=== PATIENT | female | born 1965 | race Hispanic/Latino ===

== ENCOUNTER 2017-10-10 00:54 | Emergency (ER) | payer MEDICAID ==
[~2017-10-10 00:54] MED LIST: AMOX-429 PO; TAMS-1 PO; TRAM50TA2 PO
[2017-10-10] MEDS ORDERED: HYDROXYZINE HCL 25 MG TABLET ONE (01:07)
== END 2017-10-10 01:17 | disposition home or self-care (01) ==
LOC: EDH 00:54
DX: H10.9 Unspecified conjunctivitis (principal)

== ENCOUNTER → 2021-08-21 | Outpatient (CLI) | payer MEDICAID | END | disposition home or self-care (01) | LOC: RAH 13:57 | PROVIDERS: ATTEND Family Medicine | DX: N63.21 Unspecified lump in the left breast, upper outer quadrant (principal); N63.24 Unspecified lump in the left breast, lower inner quadrant | CPT/HCPCS: 76641; 77066 ==

== ENCOUNTER 2022-03-22 12:59 | Emergency (ER) | payer MEDICAID ==
[~2022-03-22] VITALS: Ht 154.9 cm; Wt 74.4 kg
[2022-03-22 13:26] LABS: HEMATOCRIT 42.7 % (36-48); MEAN CORPUSCULAR HEMOGLOBIN 28.8 pg (27.0-33.0); MEAN CORPUSCULAR HGB CONC 31.4 g/dL (32.0-36.0); MEAN CORPUSCULAR VOLUME 91.6 fL (79-99); PLATELET COUNT (AUTO) 281 K/uL (130-400); RED BLOOD CELL COUNT(AUTO) 4.66 MIL/uL (4.00-5.50); RED CELL DISTRIBUTION WIDTH 15.4 % (11.0-15.5); WHITE BLOOD COUNT (AUTO) 6.2 K/uL (4.8-10.8)
[2022-03-22 13:43] LABS: ALBUMIN 3.3 g/dL (3.5-5.0); CREATININE 0.8 mg/dL (0.5-1.5); POTASSIUM 3.8 mmol/L (3.5-5.1); TOTAL PROTEIN, SERUM 6.6 g/dL (6.0-8.3)
[2022-03-22 14:06] LABS: EOSINOPHILS % (MANUAL) 2 % (1-6); LYMPHOCYTES % (MANUAL) 33 % (22-44); MAN.DIFF COMMENT-IMPRESSION MANUAL DIFFERENTIAL; MONOCYTES % (MANUAL) 12 % (2-9); SEGMENTED NEUTROPHILS % 53 % (40-70)
[2022-03-22 14:07] LABS: PLATELET MORPHOLOGY COMMENT ADEQUATE
[2022-03-22 15:50] VITALS: BP 128/76
[2022-03-22] MEDS ORDERED: ACETAMINOPHEN 500 MG TABLET ONE (16:00)
[2022-03-22] MEDS ORDERED: ACETAMINOPHEN 500 MG TABLET PO ONE (16:00)
== END 2022-03-22 16:11 | disposition home or self-care (01) ==
LOC: EDH 12:59
DX: S40.812A Abrasion of left upper arm, initial encounter (principal); S80.812A Abrasion, left lower leg, initial encounter; S90.512A Abrasion, left ankle, initial encounter; S09.90XA Unspecified injury of head, initial encounter; W01.0XXA Fall on same level from slipping, tripping and stumbling without subsequent striking against object, initial encounter; Y93.89 Activity, other specified; Y92.89 Other specified places as the place of occurrence of the external cause; Y99.8 Other external cause status
CPT/HCPCS: 36415; 70450; 72125; 73590; 73610; 73630; 80053; 85025

== ENCOUNTER → 2023-06-09 | Outpatient (CLI) | payer MEDICAID | END | disposition home or self-care (01) | LOC: RAH 07:30 | PROVIDERS: ATTEND Internal Medicine Medical Oncology | DX: C50.112 Malignant neoplasm of central portion of left female breast (principal); R92.321 Mammographic fibroglandular density, right breast; Z85.3 Personal history of malignant neoplasm of breast | CPT/HCPCS: 76882; 77065 ==

== ENCOUNTER 2025-03-15 12:43 | Observation (INO) | payer MEDICAID ==
[~2025-03-15] VITALS: Ht 144.8 cm; Wt 67.0 kg
[~2025-03-15 12:43] MED LIST changes: -TAMS-1 PO; +TAMS-55 PO
--- NOTE | 2025-03-15 15:14 | HMCIMG ---
EXAM: CR left Rib, 3 View, Chest 1 view. CLINICAL HISTORY: fall COMPARISON: None provided. FINDINGS: Nondisplaced fracture of the lateral aspect of the left seventh rib and posterior, lateral aspects of the left ninth and suspected 10th ribs. No pneumothorax appreciated. Visualized chest is clear. No pleural effusion. Heart size and pulmonary vessels are within normal limits. IMPRESSION: 1. Nondisplaced fractures of left 7th, 9th, and suspected 10th ribs. 2. No pneumothorax. /[place]
--- NOTE | 2025-03-15 15:54 | ERN ---
ED Note History of Present Illness Stated Complaint: FALL Chief Complaint: Mechanical Fall Time Seen by MD: 12:57 Time Seen by Midlevel: 13:00 Dictation: 59-year-old female with a history of hypertension coming in with complaints of left rib pain. Patient states she had a ground level fall couple of days ago. States she had not coming in because she lives by herself and did not have anybody to bring her. Patient denies any head injury, no LOC, no blood thinners. Allergies: Coded Allergies: No Known Drug Allergies (Unverified Allergy, Unknown, 04/13/17) Home Meds Reported Medications Tramadol HCl (Ultram) 50 Mg Tab, 50 MG PO [id number] PRN for PAIN LEVEL 6 TO 10, #20 TAB 04/15/17 Tamsulosin HCl (Flomax) 0.4 Mg Cap.er.24h, 0.4 MG PO DAILY for 14 Days, CAPSULE. 04/15/17 Amoxicillin/Potassium Clav (Augmentin 875-125 Tablet) 1 Each Tablet, 1 EACH PO BID for 10 Days, TAB 04/15/17 Past Medical History Past Medical History: Cancer, Diabetes-Type II, Other Additional Past Medical Hx: THYROID Surgical History: Other, None Surgical History Other: LT MASTECTOMY Review of System Dictation Constitutional: Negative for fever,chills, and weight loss Eyes: Negative for injury, pain,redness, and discharge ENT: Negative for injury,pain or swelling Cardiovascular: Negative for chest pain, palpitations, and edema, complaining of left-sided rib pain Respiratory: Negative for shortness of breath, cough, and wheezing, Abdomen/GI: Negative for abdominal pain, nausea, vomiting, diarrhea, and constipation Back: Negative for injury and pain : Negative for injury, bleeding and discharge MS/Extremity: Negative for injury and deformity Skin: Negative for rash, and discoloration Neuro: Negative for headache, weakness, numbness, tingling, and seizure Psych: Negative for suicide ideation, homicidal ideation, and hallucinations Review of Systems: was completed Initial Vital Sign VS Vital Signs Date Time Temp Pulse Resp B/P (MAP) Pulse Ox O2 Delivery O2 Flow Rate FiO2 03/15/25 12:47 98.2 72 18 143/88 97 Physical Exam Dictation General: awake, alert, NAD Head/Face: Normocephalic, atraumatic Eyes: PERRL, EOMI, vision at baseline ENT: oral cavity clear, TMs clear, no signs of infection Neck: Trachea midline, supple, no nuchal rigidity Cardiovascular: RRR, normal S1/S2, No MRGs, no JVD, pain on palpation to the left lateral aspect of the thoracic cavity Respiratory: CTAB, no respiratory distress, No rales or wheezes Abdomen: Soft, non-tender, non-distended, normal bowel sounds, no guarding or rebound. Skin: Warm, dry, normal turgor, no rash MS/Extremity: Pulses equal, no cyanosis, neurovascular intact, FROM Neuro: COAx4, GCS 15, strength 5/5, CN 2-12 intact, normal cerebellar exam, normal gait, Psych: Normal behavior, mood, and affect normal Results (Laboratory/Radiology) Laboratory/Radiology Laboratory Tests Test 03/15/25 15:58 White Blood Count 7.1 K/uL (4.8-10.8) Red Blood Count 4.41 MIL/uL (4.00-5.50) Hemoglobin 13.2 g/dL (12.0-16.0) Hematocrit 41.0 % (36-48) Mean Corpuscular Volume 93.0 fL (79-99) Mean Corpuscular Hemoglobin 29.9 pg (27.0-33.0) Mean Corpuscular Hemoglobin Concent 32.2 g/dL (32.0-36.0) Red Cell Distribution Width 14.5 % (11.0-15.5) Platelet Count 292 K/uL (130-400) Mean Platelet Volume 11.6 fL (7.5-10.5) H Immature Granulocyte % (Auto) 0.4 % (0-1) Neutrophils (%) (Auto) 54.0 % (40.0-77.0) Lymphocytes (%) (Auto) 33.2 % (21.0-51.0) Monocytes (%) (Auto) 9.0 % (3.0-13.0) Eosinophils (%) (Auto) 2.8 % (0.0-8.0) Basophils (%) (Auto) 0.6 % (0.0-5.0) Neutrophils # (Auto) 3.8 K/uL (1.8-7.7) Lymphocytes # (Auto) 2.4 K/uL (1.0-4.8) Monocytes # (Auto) 0.6 K/uL (0.1-1.0) Eosinophils # (Auto) 0.20 K/uL (0.00-0.70) Basophils # (Auto) 0.04 K/uL (0.00-0.20) Absolute Immature Granulocyte (auto 0.03 K/uL (0-1) Nucleated Red Blood Cells 0.0 % (0.0-0.19) Labs Reviewed?: Yes X-RAY Comment: [place] [address] [place] [id number] IMAGING REPORT Signed PATIENT: RAJEEV DOLL MR#: [id number] : 1965 SEX: F AGE: 59 LOCATION: [facility] ORDER 1303 STATUS: REG ER REPORT#: [id number] SERVICE 1302 REASON: fall ORDERING PHYSICIAN: NATASHA MUNOZ NP PROCEDURE: RIB LT W C - RIBS UNI LT W PA CHEST 3+VWS EXAM: CR left Rib, 3 View, Chest 1 view. CLINICAL HISTORY: fall COMPARISON: None provided. FINDINGS: Nondisplaced fracture of the lateral aspect of the left seventh rib and posterior, lateral aspects of the left ninth and suspected 10th ribs. No pneumothorax appreciated. Visualized chest is clear. No pleural effusion. Heart size and pulmonary vessels are within normal limits. IMPRESSION: 1. Nondisplaced fractures of left 7th, 9th, and suspected 10th ribs. 2. No pneumothorax. /[place] DICTATED BY: SHALA CHAN Jr., MD DATE: 03/15/251612 ELECTRONICALLY SIGNED BY: SHALA CHAN Jr., MD DATE: 03/15/251612 ED Course ED Course Orders Procedure Category Date Status Time Ribs Uni Lt W Pa RAD 03/15/25 Resulted Chest 3+Vws 13:02 Tramadol Hcl (Ultram) PHA 03/15/25 Complete 13:02 Cbc With Differential LAB 03/15/25 Complete 15:28 Basic Metabolic Panel LAB 03/15/25 In Process 15:28 Urinalysis Profile LAB 03/15/25 Logged 15:28 12 Lead Ekg Tracing- EKG 03/15/25 Logged Technical 15:28 Fentanyl Citrate Pf PHA 03/15/25 Complete 0.05 Mg/Ml (Fentanyl 15:49 Current Medications Medications (Trade) Dose Ordered Sig/Jenelle Route PRN Reason Start Time Stop Time Status Last Admin Dose Admin Fentanyl Citrate (FENTanyl CITRate PF 50 MCG/ 1 ML 2ML VIAL) 25 mcg ONCE STAT IVP 03/15/25 15:49 03/15/25 15:53 DC 03/15/25 16:03 Tramadol HCl (UltRAM) 50 mg ONCE STAT PO 03/15/25 13:02 03/15/25 13:05 DC 03/15/25 13:21 Vital Signs Date Time Temp Pulse Resp B/P (MAP) Pulse Ox O2 Delivery O2 Flow Rate FiO2 03/15/25 12:47 98.2 72 18 143/88 97 Medical Decision Making MDM MDM: 59-year-old female with a history of hypertension coming in with complaints of left rib pain. Patient states she had a ground level fall couple of days ago. States she had not come in because she lives by herself and did not have anybody to bring her. Patient denies any head injury, no LOC, no blood thinners. Rib series shows a fracture to the 7th, 9th and 11th rib. On reassessment after tramadol, patient states she still has a lot of pain, has trouble moving around, it is concerned about going home and pains states he lives by herself and can not get around her home. 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 Differential diagnosis: Pneumothorax, rib fractures, rib contusion, lung contusion Rationale: Tests considered and ordered secondary to shared decision making include: labs, ECG and radiology Previous outside records reviewed: Old ER visits. Risk of complication and/or morbidity or mortality of patient management: None Medications-Per medication reconciliation Need for hospitalization: Patient does meet criteria for hospitalization. Need for emergency major/minor surgery: No There are no social concerns with this patient. Prescription drug management Prescriptions will include symptomatic care Patient's prior external medical records from other ER visits were reviewed by me as indicated. Prior testing and results from previous visits were reviewed. Prior tests were taken into account with medical decision making and resource utilization, independent historian/historians were used to obtain complete medical history. I independently interpreted the test that were performed, results were reviewed by me and considered findings on radiology if ordered. Medical management and examination interpretation discussions were had by me with other qualified healthcare professionals as indicated for the patient's care. DX & DISP Disposition: Discharge Decision to Admit Date: Mar 15, 2025 Decision to Admit Time: 16:24 Departure Impression: Primary Impression: Ribs, multiple fractures Additional Impression: At risk for inadequate pain control Condition: Stable Referrals: AUSTIN CASEY (PCP) Time of Disposition: 16:24 I have reviewed the case, and I agree with, Diagnosis and Plan NATASHA MUNOZ NP Mar 15, 2025 15:54
[2025-03-15 16:10] LABS: IMMATURE GRANULOCYTE ABSOLUTE 0.03 K/uL (0-1); NUCLEATED RED BLOOD CELLS 0.0 % (0.0-0.19); PLATELET COUNT (AUTO) 292 K/uL (130-400); RED BLOOD CELL COUNT(AUTO) 4.41 MIL/uL (4.00-5.50); RED CELL DISTRIBUTION WIDTH 14.5 % (11.0-15.5); WHITE BLOOD COUNT (AUTO) 7.1 K/uL (4.8-10.8)
[2025-03-15 16:22] LABS: CREATININE 0.6 mg/dL (0.5-1.0); GLOMERULAR FILTR. RATE CALC 103.0 mL/min (>90); GLUCOSE,RANDOM 131.0 mg/dL (70-105); SODIUM SERUM 142.0 mmol/L (136-145); UREA NITROGEN, BLOOD 15.0 mg/dL (7-18)
[2025-03-15] MEDS ORDERED: PoTASSium chloRIDE 20MEQ ER 20 MEQ ERTAB PO PRN (16:30)
[2025-03-15] MEDS ORDERED: PoTASSium chl 10% ELIXIR 20MEQ 20 MEQ/15 ML UDCUP PO PRN (16:30)
[2025-03-15] MEDS ORDERED: HYDROcodone/APAP 5/325 1 TAB TABLET PO PRN (16:30)
[2025-03-15] MEDS ORDERED: LACTULOSE 20 GM/30 ML UDCUP PO PRN (16:30)
[2025-03-15] MEDS ORDERED: MAGNESIUM 2GM PREMIX 50ML 50 ML IV PRN (16:30)
--- NOTE | 2025-03-15 16:38 | HP ---
[facility] H[facility] PHYS[facility] Date of Service: Mar 15, 2025 Time of Service: 16:32 HISTORY OF PRESENT ILLNESS: [ ] admission Date 03/15/2025 PCP: Dr Lambert Mcdonough MD CC intractable pain left sided rib cage s/p fall two days ago This is a 59-year-old female that presents in ED with chief complaints left rib pain. Onset two days. Reports that she got up in the middle of the night to use the bathroom and she ran into the bathroom door. She has no bruising to add left side. The patient has a history of left breast cancer with mastectomy she is currently on p.o. chemo daily and IV infusion every three months. She reports the pain on her left side states 04/20 when she presented in ED she was given pain medication some relief. Severity pain is severe on arrival aggravated factors activity, walking, alleviating factors none. She denies chest pain, shortness for breath, headache blurry vision double vision. ER workup was consistent Nondisplaced fractures of left 7th, 9th, and suspected 10th ribs. No pneumothorax. Patient will be admitted for pain management overnight. REVIEW OF SYSTEMS 12 point ROS obtained all relevant positive documented otherwise ROS negative PAST MEDICAL HISTORY: [ ] Diabetes, breast cancer on chemo PAST SURGICAL HISTORY: [ ] Left-sided mastectomy PAST SOCIAL HISTORY: [ ] Denies smoking tobacco products and alcohol use lives with boyfriend FAMILY HISTORY: [ ] Noncontributory Coded Allergies: No Known Drug Allergies (Unverified Allergy, Unknown, 04/13/17) PHYSICAL EXAM GENERAL APPEARANCE: The patient is awake, alert, and oriented, in no acute cardiopulmonary distress. NEUROLOGICAL: Cranial nerves II-XII grossly intact. Motor is 5/5 in bilateral upper and lower extremities proximal to distal. No sensory deficits. HEENT: Face is symmetric. Pupils are equal and reactive. Extraocular movements are intact. NECK: Supple. No JVD. No thyromegaly. No submental, submandibular, pre- /postauricular, occipital or supraclavicular lymphadenopathy. CHEST: Normal chest expansion. No Telemetry. LUNGS: Absence of any rales, rhonchi or any wheezing. CARDIOVASCULAR: Regular. S1 and S2 normal. No appreciable rubs, murmurs or gallops. ABDOMEN: Soft, nontender, and nondistended. There is no rebound, voluntary guarding, or rigidity. : Deferred. No Hines. EXTREMITIES: Non-edematous and not cyanotic. No clubbing. Good capillary refill. SKIN: No skin breakdown. Vital Sign (Last 24 Hours) 03/15/25 12:47 Temp 98.2 Pulse 72 Resp 18 B/P (MAP) 143/88 Pulse Ox 97 LABS: Laboratory: Test 03/15/25 15:58 Range/Units White Blood Count 7.1 4.8-10.8 K/uL Red Blood Count 4.41 4.00-5.50 MIL/uL Hemoglobin 13.2 12.0-16.0 g/dL Hematocrit 41.0 36-48 % Mean Corpuscular Volume 93.0 79-99 fL Mean Corpuscular Hemoglobin 29.9 27.0-33.0 pg Mean Corpuscular Hemoglobin Concent 32.2 32.0-36.0 g/dL Red Cell Distribution Width 14.5 11.0-15.5 % Platelet Count 292 130-400 K/uL Mean Platelet Volume 11.6 H 7.5-10.5 fL Immature Granulocyte % (Auto) 0.4 0-1 % Neutrophils (%) (Auto) 54.0 40.0-77.0 % Lymphocytes (%) (Auto) 33.2 21.0-51.0 % Monocytes (%) (Auto) 9.0 3.0-13.0 % Eosinophils (%) (Auto) 2.8 0.0-8.0 % Basophils (%) (Auto) 0.6 0.0-5.0 % Neutrophils # (Auto) 3.8 1.8-7.7 K/uL Lymphocytes # (Auto) 2.4 1.0-4.8 K/uL Monocytes # (Auto) 0.6 0.1-1.0 K/uL Eosinophils # (Auto) 0.20 0.00-0.70 K/uL Basophils # (Auto) 0.04 0.00-0.20 K/uL Absolute Immature Granulocyte (auto 0.03 0-1 K/uL Nucleated Red Blood Cells 0.0 0.0-0.19 % Sodium Level 142 136-145 mmol/L Potassium Level 4.0 3.5-5.1 mmol/L Chloride Level 109 101-111 mmol/L Carbon Dioxide Level 28 21-32 mmol/L Blood Urea Nitrogen 15 7-18 mg/dL Creatinine 0.6 0.5-1.0 mg/dL Glomerular Filtration Rate Calc 103 >90 mL/min Random Glucose 131 H 70-105 mg/dL Total Calcium 8.2 L 8.5-10.1 mg/dL Current Medications Medications (Trade) Dose Ordered Sig/Jenelle Route PRN Reason Start Time Stop Time Status Last Admin Dose Admin Fentanyl Citrate (FENTanyl CITRate PF 50 MCG/ 1 ML 2ML VIAL) 25 mcg ONCE STAT IVP 03/15/25 15:49 03/15/25 15:53 DC 03/15/25 16:03 25 MCG Tramadol HCl (UltRAM) 50 mg ONCE STAT PO 03/15/25 13:02 03/15/25 13:05 DC 03/15/25 13:21 50 MG DIAGNOSTICS / RADIOLOGY: [ ] REASON: fall ORDERING PHYSICIAN: NATASHA MUNOZ NP PROCEDURE: RIB LT W C - RIBS UNI LT W PA CHEST 3+VWS EXAM: CR left Rib, 3 View, Chest 1 view. CLINICAL HISTORY: fall COMPARISON: None provided. FINDINGS: Nondisplaced fracture of the lateral aspect of the left seventh rib and posterior, lateral aspects of the left ninth and suspected 10th ribs. No pneumothorax appreciated. Visualized chest is clear. No pleural effusion. Heart size and pulmonary vessels are within normal limits. IMPRESSION: 1. Nondisplaced fractures of left 7th, 9th, and suspected 10th ribs. 2. No pneumothorax. ASSESSMENT: Mechanical floor: sustained ribs fracture: left sided 7th, 9th and 11th POA intractable pain to left sided rib cage POA Breast cancer with left-sided mastectomy on chemotherapy Immunosuppressive state History diabetes type 2 PLAN: Admit: Surgical floor condition: Guarded Status: Full code IVF: NS at 75 mL/hour Consultants none Pain management [place] [id number] tab every 6 hours, morphine 2 mg IV every 4 hours Labs cbc, cmp, mag+ A.c. HS monitoring with sliding scale coverage Replace electrolytes as needed as per protocol to keep potassium above 4.0 magnesium 2.0. Home medications pending to be reviewed by RN nurse. PRN: MEDICATIONS Tylenol 650 mg po every 4 hrs for fever zofran 4 mg IV every 6 hrs for n/v Hydralazine 5 mg IV every 4 hrs systolic pressure > 160 bowel regiment: lactulose 20 gm PO BID PRN constipation Pain management: Supportive measures: DVT ppx, GI ppx all questions answered time spent: > 35 min Supervising MD: Dr. Zeke Mccurdy c/d This document was generated in part using voice recognition software, occasional wrong word or sound alike substitutions may have occurred due to the inherent limitations of voice recognition software. Read the chart carefully and recognize using context, where the substitutions have occurred. Although every effort was made to edit the content, director cpg and typing errors may occur ADVANCED CARE PLANNING 1. Which of the following were discussed? Hospice Care - Yes / No Therapeutic options - Yes / No Advance Directives - Yes / No Other discussions - 2. Discussed with who? 3. Voluntary nature of this service was explained to the patient? Yes / No 4. Amount of time spent - 5. Reviewed by Physician? (if this service was performed by NPP) Yes / No ATTESTATION BY PHYSICIAN I have seen and examined the patient. I reviewed the documentation, medical decision making, and treatment plan as noted by the mid-level provider above. I agree with the findings and plan of care. TIMUR CERVANTES MD, ELIZABETH NP Mar 15, 2025 16:38
[2025-03-15] MEDS: 0.9%NACL 1000ML 1,000 ML IV SCH (17:27)
[2025-03-15] MEDS: FAMOTIDINE 20MG TAB PO SCH (20:27)
[2025-03-16 00:05] VITALS: BP 132/72; PULSE 79; RESP 16; TEMP 97.8
[2025-03-16] MEDS ORDERED: METF-444 PO (01:55)
[2025-03-16] MEDS ORDERED: LORA10TA7 PO (01:55)
[2025-03-16] MEDS ORDERED: EXEM25TA PO (01:55)
[2025-03-16] MEDS ORDERED: PANT40TA54 PO (01:55)
[2025-03-16 03:58] VITALS: BP 137/71; PULSE 66; RESP 20; TEMP 97.9
--- NOTE | 2025-03-16 06:30 | EKG ---
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
[2025-03-16 08:00] VITALS: BP 153/99; PULSE 61; RESP 19; TEMP 97.6; O2SAT 98
[2025-03-16] MEDS ORDERED: LIDO1ADH82 TP (09:57)
--- NOTE | 2025-03-16 09:59 | DS ---
Discharge Summary Hospital Course Summary: admission Date 03/15/2025 PCP: Dr Lambert Mcdonough MD CC intractable pain left sided rib cage s/p fall two days ago This is a 59-year-old female that presents in ED with chief complaints left rib pain. Onset two days. Reports that she got up in the middle of the night to use the bathroom and she ran into the bathroom door. She has no bruising to add left side. The patient has a history of left breast cancer with mastectomy she is currently on p.o. chemo daily and IV infusion every three months. She reports the pain on her left side states 04/20 when she presented in ED she was given pain medication some relief. Severity pain is severe on arrival aggravated factors activity, walking, alleviating factors none. She denies chest pain, shortness for breath, headache blurry vision double vision. ER workup was consistent Nondisplaced fractures of left 7th, 9th, and suspected 10th ribs. No pneumothorax. Patient will be admitted for pain management overnight. 03/16/25 hemodynamically patient is doing much better today with pain. She will be discharged home with pain medication Tylenol No. 3 as directed in lidocaine patch she denied chest pain, or shortness for breath. All questions addressed advised patient to follow-up with PCP in 2-3 days. Procedure(s): REASON: fall ORDERING PHYSICIAN: NATASHA MUNOZ NP PROCEDURE: RIB LT W C - RIBS UNI LT W PA CHEST 3+VWS EXAM: CR left Rib, 3 View, Chest 1 view. CLINICAL HISTORY: fall COMPARISON: None provided. FINDINGS: Nondisplaced fracture of the lateral aspect of the left seventh rib and posterior, lateral aspects of the left ninth and suspected 10th ribs. No pneumothorax appreciated. Visualized chest is clear. No pleural effusion. Heart size and pulmonary vessels are within normal limits. IMPRESSION: 1. Nondisplaced fractures of left 7th, 9th, and suspected 10th ribs. 2. No pneumothorax. Electronically signed by: SHALA Assessment/Plan: Discharged dx's Mechanical floor: sustained ribs fracture: left sided 7th, 9th and 11th POA intractable pain to left sided rib cage POA Breast cancer with left-sided mastectomy on chemotherapy Immunosuppressive state History diabetes type 2 PLAN: ADMISSION DATE: 03/15/2025 DISCHARGE DATE: 03/16/2025 DISPOSITION: Home CONDITION: Stable WELDING FOREMAN(S): None FOLLOW UP APPOINTMENT(S): PCP 2-3 days PROCEDURES: None IMAGING (S) report attached to summary : X-ray MICROBIOLOGY: report attached to summary; ACTIVITY: Ad tyson HOME MEDICATIONS remain the same CHANGES ON HOME MEDICATIONS none NEW MEDICATIONS see below TEACHING: Fall precautions Emergency instructions: The patient was instructed to present to the nearest Emergency Department or call 911 should their symptoms return or worsen. Home Medications: Active Scripts Lidocaine (Lidocaine) 4 % Adh..patch, 1 PATCH TP DAILY for 10 Days, #10 PATCH 0 Refills Prov:CARLI COKER NP 03/16/25 Reported Medications Metformin HCl (Metformin HCl) 500 Mg Tablet, 1 TAB PO DAILY for 30 Days, #60 TAB 0 Refills 03/16/25 Loratadine (Loratadine) 10 Mg Tablet, 1 TAB PO DAILY for allergy symptoms for 30 Days, #30 TAB 0 Refills 03/16/25 Pantoprazole Sodium (Pantoprazole Sodium) 40 Mg Tablet.dr, 1 TAB PO DAILY for 30 Days, #30 TAB 0 Refills 03/16/25 Exemestane (Exemestane) 25 Mg Tablet, 1 TAB PO DAILY for 30 Days, #30 TAB 0 Refills 03/16/25 Discontinued Reported Medications Tramadol HCl (Ultram) 50 Mg Tab, 50 MG PO [id number] PRN for PAIN LEVEL 6 TO 10, #20 TAB 04/15/17 Tamsulosin HCl (Flomax) 0.4 Mg Cap.er.24h, 0.4 MG PO DAILY for 14 Days, CAPSULE. 04/15/17 Amoxicillin/Potassium Clav (Augmentin 875-125 Tablet) 1 Each Tablet, 1 EACH PO BID for 10 Days, TAB 04/15/17 New Medications: Lidocaine (Lidocaine) 4 % Adh..patch 1 PATCH TP DAILY for 10 Days, #10 PATCH 0 Refills Continued Medications: Exemestane (Exemestane) 25 Mg Tablet 1 TAB PO DAILY for 30 Days, #30 TAB 0 Refills Loratadine (Loratadine) 10 Mg Tablet 1 TAB PO DAILY for allergy symptoms for 30 Days, #30 TAB 0 Refills Metformin HCl (Metformin HCl) 500 Mg Tablet 1 TAB PO DAILY for 30 Days, #60 TAB 0 Refills Pantoprazole Sodium (Pantoprazole Sodium) 40 Mg Tablet.dr 1 TAB PO DAILY for 30 Days, #30 TAB 0 Refills Time spent arranging discharge: 31-60 minutes ATTESTATION BY PHYSICIAN I have seen and examined the patient. I reviewed the documentation, medical decision making, and treatment plan as noted by the mid-level provider above. I agree with the findings and plan of care. TIMUR CERVANTES MD, ELIZABETH NP Mar 16, 2025 09:59
--- NOTE | 2025-03-16 14:03 | NUR ---
PATIENT DISCHARGED HOME ID BAND AND IV REMOVED. DISCHARGE INSTRUCTIONS EXPLAINED AND GIVEN TO PATIENT. MEDICINE SCRIPT GIVE TO PATIENT. PATIENT VERBALIZED UNDERSTANDING. BELONGINGS PACKED AND TAKEN BY PATIENT. WHEELED DOWN TO PRIVATE CAR.
== END 2025-03-16 13:47 | disposition home or self-care (01) ==
LOC: EDH 12:43 → INTOOBSV 12:44 → OBSVTOIN 12:44 → EDHIP 12:44 → 3AH 03-16 00:10
PROVIDERS: ADMIT Internal Medicine; ATTEND Internal Medicine
DX: S22.42XA Multiple fractures of ribs, left side, initial encounter for closed fracture (principal); C50.919 Malignant neoplasm of unspecified site of unspecified female breast; E11.9 Type 2 diabetes mellitus without complications; I10 Essential (primary) hypertension; Z90.12 Acquired absence of left breast and nipple; Z79.899 Other long term (current) drug therapy; Z98.890 Other specified postprocedural states; W18.30XA Fall on same level, unspecified, initial encounter; Y93.89 Activity, other specified; Y92.89 Other specified places as the place of occurrence of the external cause; Y99.8 Other external cause status
CPT/HCPCS: 96361 ×2; 96375; 99285; 80048; 85025; 82948 ×2; 36415; 71101; 96374; 93005; 96376; J3010; J2270 ×2; G0378 ×2